=== PATIENT | female | born 1985 | race Caucasian/White ===

== ENCOUNTER 2024-01-18 12:27 | Inpatient (IN) ==
[2024-01-18] MEDS ORDERED: Lidocaine 1% VIAL 10 MG/ML 30 ML VIAL INJ PRN (13:26)
[2024-01-18] MEDS ORDERED: Lactated Ringers 1000 ml BAG 1,000 ML IV SCH (14:00)
[2024-01-18] MEDS: miSOPROStol 100 mcg TAB VAGINAL ONE (15:08)
[2024-01-18 16:23] LABS: Urine Benzodiazepine Screen None Detected (None Detect); Urine Cannabinoids Screen None Detected (None Detect); Urine Opiates Screen None Detected (None Detect)
[2024-01-18] MEDS: Dinoprostone 10 MG VAG.SUPP VAGINAL ONE (21:55)
[2024-01-19] MEDS: Buffered Lidocaine 1% SYRIN 1 ml ONE (11:52)
[2024-01-19] MEDS: Oxytocin in LR 20,000 MILLI.UNIT/1,000 ML BAG IV SCH (12:11)
[2024-01-19] MEDS: Lactated Ringers 1000 ml BAG 1,000 ML IV ONE ×2 (12:11→21:46)
[2024-01-19] MEDS: Buffered Lidocaine 1% SYRIN 1 ml INTRADERM ONE (12:11)
[2024-01-19 12:30] LABS: ABS Lymphocytes 1.4 10^3/uL (1.0-4.8); ABS Monocytes 0.7 10^3/uL (0.0-0.9); ABS Neutrophils 8.2 10^3/uL (1.5-7.6); ABS Nucleated RBC 0.01 10^3/ul; Eosinophil % 0.1 %; Hematocrit 31.5 % (35-45); Hemoglobin 10.8 g/dL (11.5-14.3); Lymphocyte % 13.4 %; Mean Corpuscular Hemoglobin 29.2 pg (27-33); Mean Corpuscular Hgb Conc 34.4 g/dL (31-36); Mean Corpuscular Volume 85.1 fL (80-97); Mean Platelet Volume 10.3 fL (7.5-11.2); Nucleated Red Blood Cells % 0.1 %/100WBC (0.0-0.8); Platelet Count 201 10^3/uL (150-450); White Blood Count 10.3 10^3/uL (3.8-11.8)
[2024-01-19] MEDS ORDERED: Phenylephrine 40 mcg/mL 10mL (400mcg) SYRINGE IV PUSH PRN ×2 (20:29→20:40)
[2024-01-19] MEDS ORDERED: Sodium Citrate/Citric Acid LIQ 15 ML UDC PO PRN ×2 (20:29→20:40)
[2024-01-19] MEDS: Lactated Ringers 1000 ml BAG 1,000 ML IV SCH ×2 (20:35→21:55)
[2024-01-19] MEDS: OBEPIDURAL (200 ML) 200 ML EPIDURAL ONE (20:35)
[2024-01-19] MEDS: Phenylephrine 40 mcg/mL 10mL (400mcg) SYRINGE IV PUSH PRN ×2 (20:36→20:46)
[2024-01-19] MEDS ORDERED: Lactated Ringers 1000 ml BAG 1,000 ML IV ONE (20:40)
[2024-01-19] MEDS ORDERED: OBEPIDURAL (200 ML) 200 ML EPIDURAL SCH (21:00)
[2024-01-19 22:10] LABS: Urine Appearance Turbid; Urine Bilirubin Negative (Negative); Urine Blood 2+ (Negative); Urine Color Yellow; Urine Glucose Negative (Negative); Urine Ketones 2+ (Negative); Urine Nitrite Negative (Negative); Urine Protein 1+ (>=30 mg/dL) (Negative); Urine Specific Gravity 1.029 (1.002-1.030); Urine Urobilinogen Negative (Negative)
[2024-01-19 22:18] LABS: Urine Bacteria Absent /HPF (Absent); Urine Granular Casts Present /LPF (Absent); Urine Red Blood Cell 3+(>10/hpf) /HPF (0-Trace); Urine White Blood Cell Trace(0-5/hpf) /HPF (0-Trace)
[2024-01-19] MEDS ORDERED: Ondansetron 4 mg VIAL 2 MG/ML 2 ml VIAL IV PRN (23:40)
[2024-01-20] MEDS ORDERED: Lactated Ringers 1000 ml BAG 1,000 ML IV ONE (03:19)
[2024-01-20] MEDS: Sodium Citrate/Citric Acid LIQ 15 ML UDC PO ONE (03:29)
[2024-01-20] MEDS ORDERED: Oxytocin 10 UNITS/ML 1 ML VIAL ONE (03:31)
[2024-01-20] MEDS ORDERED: Ondansetron 4 mg VIAL 2 MG/ML 2 ml VIAL ONE (03:31)
[2024-01-20] MEDS ORDERED: Chloroprocaine 3% 20 ml VIAL ONE (03:42)
[2024-01-20] MEDS ORDERED: Phenylephrine 40 mcg/mL 10mL (400mcg) SYRINGE ONE (03:52)
[2024-01-20] MEDS ORDERED: Lactated Ringers 1000 ml BAG 1,000 ML IV SCH ×2 (04:00→06:00)
[2024-01-20] MEDS ORDERED: fentaNYL 100 mcg/2 ml 50 MCG/ML VIAL ONE (04:05)
[2024-01-20] MEDS ORDERED: Dexamethasone IV 4 MG/ML VIAL 1 ml VIAL ONE (04:10)
[2024-01-20] MEDS ORDERED: fentaNYL 100 mcg/2 ml 50 MCG/ML VIAL IV PRN (04:18)
[2024-01-20] MEDS ORDERED: Naloxone 0.4 mg VIAL 0.4 mg/ml 1 ml VIAL IV PRN (04:18)
[2024-01-20] MEDS ORDERED: Morphine PF AMP (0.5MG/ML) 5 MG/10 ML AMP ONE (04:24)
[2024-01-20] MEDS ORDERED: Acetaminophen IV 1 GM/100ML 1,000 MG/100 ML BAG IV PRN (04:25)
[2024-01-20] MEDS ORDERED: Naloxone 0.4 mg VIAL 0.4 mg/ml 1 ml VIAL IV PUSH PRN (04:25)
[2024-01-20] MEDS ORDERED: Ondansetron 4 mg VIAL 2 MG/ML 2 ml VIAL IV PRN (04:25)
[2024-01-20] MEDS ORDERED: Acetaminophen IV 1 GM/100ML 1,000 MG/100 ML BAG IV ONE (04:32)
[2024-01-20] MEDS ORDERED: OBEPIDURAL (200 ML) 200 ML EPIDURAL SCH (05:00)
[2024-01-20] MEDS ORDERED: Glycerin ADULT 2.4 gm SUPP PR PRN (05:01)
[2024-01-20] MEDS ORDERED: Dibucaine 1% OINT 28.35 GM TUBE PR PRN (05:01)
[2024-01-20] MEDS ORDERED: Witch Hazel PAD JAR TOPICAL PRN (05:01)
[2024-01-20] MEDS ORDERED: Oxytocin in LR 20,000 MILLI.UNIT/1,000 ML BAG IV SCH (05:05)
[2024-01-20] MEDS: Lidocaine 1.5% EPI 1:200,000 30 ML SDV ONE (06:01)
[2024-01-20] MEDS: ceFOXitin 2 GM IVPREMIX 2 GM/50 ML BAG IVPB ONE (06:01)
[2024-01-20] MEDS: OBEPIDURAL (200 ML) 200 ML EPIDURAL SCH (06:31)
[2024-01-21 07:10] LABS: ABS Lymphocytes 1.9 10^3/uL (1.0-4.8); ABS Monocytes 0.8 10^3/uL (0.0-0.9); ABS Neutrophils 9.7 10^3/uL (1.5-7.6); ABS Nucleated RBC 0.01 10^3/ul; Eosinophil % 0.2 %; Hematocrit 27.3 % (35-45); Hemoglobin 9.4 g/dL (11.5-14.3); Lymphocyte % 14.9 %; Mean Corpuscular Hemoglobin 29.2 pg (27-33); Mean Corpuscular Hgb Conc 34.5 g/dL (31-36); Mean Corpuscular Volume 84.7 fL (80-97); Nucleated Red Blood Cells % 0.1 %/100WBC (0.0-0.8); Platelet Count 173 10^3/uL (150-450); Red Blood Count 3.22 10^6/uL (3.63-4.92); Red Cell Distribution Width 14.2 % (12-17); White Blood Count 12.4 10^3/uL (3.8-11.8)
[2024-01-22] MEDS: RHO D Immune Globulin (HUMAN) 300 MCG = 1,500 I.U. INJ IM PRN (18:10)
[2024-01-23 11:13] VITALS: BP 126/76
== END 2024-01-23 14:00 | disposition home or self-care (01) | DRG 788 ==
LOC: MCHOBOUT 12:27 → MCHOB 13:30
PROVIDERS: ADMIT Obstetrics & Gynecology; ATTEND Obstetrics & Gynecology